=== PATIENT | male | born 1935 | race Caucasian/White ===

== ENCOUNTER 2024-07-10 11:19 | Day surgery (SDC) | payer MEDICARE, BC, SELFPAY ==
[2024-07-10] VITALS (9 sets, daily range): BP systolic 108–149; BP diastolic 46–61; BMI 23.3
[2024-07-10 12:39] LABS: Glucose - Point of Care 85 mg/dl (70-99)
--- NOTE | 2024-07-10 12:43 | ITS.CL.PACE ---
Mortgage Operations Manager - Pacemaker Implant
Pacemaker Implant
Procedure Report:
Primary Solvent Plant Operator: Dr Lara Narvaez
Procedure Date: 07/10/2024
Name of procedure:
1. Device Revision: Dual Chamber Pacemaker
2. Pulse Generator Change
History:
See H&P for full details.
Patient is a pleasant 88-year-old male with past medical history significant for hypertension, hyperlipidemia, complete heart block status post dual-chamber pacemaker, stress-induced cardiomyopathy with improved EF, history of tobacco use, diabetes
mellitus type 2, valvular heart disease, peripheral vascular disease presenting for elective generator replacement. Patient Medtronic pacemaker [place]/LEGAL BILLING ANALYST.
Methods:
After informed consent was obtained, the patient was brought to the EP laboratory in a postabsorptive, nonsedated state. Peripheral IV access was established. Prophylactic antibiotics were administered prior to incision. Continues ECG, blood
pressure, and pulse oximetry were initiated. Cardioversion patch electrodes were placed on the patient's chest and back. A grounding patch was applied to the skin. Sedation was administered by anesthesia services.
The left chest was prepared and draped in a sterile fashion. A 'time out' was called. Local anesthesia was injected in the subcutaneous tissue in the infraclavicular area. An incision was made into the chronic scar. With cautious attention to the
leads, the subcutaneous tissue was dissected the level of the device capsule. The capsule was opened, the device was explanted and disconnected from the leads. The leads were inspected and found to be free of visible defect. The leads were tested
and found to have adequate pacing and sensing parameters, consistent with pre-procedure measurements.
The pocket was flushed with antibiotic solution and hemostasis was assured. Antibiotic envelope was used. The generator was connected to the leads and placed inside the pocket. The wound was closed with 3 running layers of absorbable suture and
steri-strips were applied to the skin.
Following the procedure, the patient was taken to the recovery area in stable condition. No complications were noted.
Lead parameters and device programming:
- RA Lead ([employer], model: 4076, SN#[id number]): Sensing 2.6 mV, Pacing threshold 0.75 V at 0.4 ms, Imp 399 Ohm
- RV Lead (Medtronic, model: 5076, [id number]): Sensing dependent, Pacing threshold 1.0 V at 0.4 ms, Imp 437 Ohm
- Device: Medtronic pacemaker model: W1DR01, [id number], programmed DDDR, mode switch on, lower rate 60, upper tracking rate 130 ppm
- Explanted device: Medtronic, model: A2DR01, Serial number: [id number]
Recommendations:
1. Discharge home when stable with instructions for site care
2. Follow-up will be arranged in our office 7-10 days post-discharge for incision check
Kun Hutchison DO
Clinical Cardiac Electrophysiology
Copy to: Lara Narvaez MD; Vladislav Joe DO
== END 2024-07-10 17:08 | disposition home or self-care (01) ==
LOC: CATH 11:19
PROVIDERS: ATTENDING PHYSICIAN Internal Medicine Cardiovascular Disease
DX: Z45.010 Encounter for checking and testing of cardiac pacemaker pulse generator [battery] (principal); E11.51 Type 2 diabetes mellitus with diabetic peripheral angiopathy without gangrene; Z87.891 Personal history of nicotine dependence; E78.5 Hyperlipidemia, unspecified; I10 Essential (primary) hypertension; I44.2 Atrioventricular block, complete; I51.81 Takotsubo syndrome
CPT/HCPCS: 33228; 82962; C1785